=== PATIENT | female | born 1985 | race Hispanic/Latino ===

== ENCOUNTER 2019-02-08 22:31 | Emergency (ER) | payer SELFPAY ==
--- NOTE | 2019-02-08 23:37 | RAD ---
RIGHT LEG TWO VIEWS: 02/08/19 HISTORY: Ulcer on the right sanchez, right leg pain. FINDINGS/IMPRESSION: The right tibia and fibula are intact. No fracture, bony destruction or periosteal reaction is seen. Soft tissue calcification is present. POS: [facility]
[2019-02-08 23:44] LABS: #Basophils 0.1 thou/uL (0.0-0.2); #Eosinphils 0.3 thou/uL (0.0-0.7); #Lymphocytes 2.4 thou/uL (1.20-3.40); #Monocytes 0.5 thou/uL (0.11-0.59); #Neutrophils 4.4 thou/uL (1.40-6.50); %Basophils 0.7 % (0.0-1.0); %Eosinophils 3.8 % (0.0-10.0); %Lymphocytes 31.6 % (21.0-51.0); %Monocytes 6.4 % (0.0-10.0); %Neutrophils 57.6 % (42.0-75.0); Hemoglobin 11.9 g/dL (12.0-16.0); Mean Corpuscular Hemoglobin 26.7 pg (27.0-31.0); Mean Corpuscular Volume 83.3 fL (78.0-98.0); Mean Platelet Volume 6.8 fL (7.4-10.4); Platelet Count 237 thou/uL (130-400); RBC Distribution Width 13.2 % (11.5-14.5); Red Blood Cell (RBC) Count 4.48 mill/uL (4.20-5.40); White Blood Cell (WBC) Count 7.6 thou/uL (4.8-10.8)
[2019-02-08 23:56] LABS: ALT (SGPT) 17 U/L (8-55); AST (SGOT) 18 U/L (5-34); Albumin 4.4 g/dL (3.5-5.0); Alkaline Phosphatase 91 U/L (40-150); Anion Gap 14 mmol/L (10-20); BUN (Urea Nitrogen) 8 mg/dL (7.0-18.7); Bilirubin, Total 0.5 mg/dL (0.2-1.2); Calc. Creatinine Clearance 0 mL/min (70-130); Calcium 9.2 mg/dL (7.8-10.44); Carbon Dioxide 23 mmol/L (22-29); Chloride 106 mmol/L (98-107); Estimated GFR-MDRD Greater than 90; Globulin 3.4 g/dL (2.4-3.5); Glucose 101 mg/dL (70-105); Potassium 3.8 mmol/L (3.5-5.1); Protein, Total 7.8 g/dL (6.0-8.3); Sodium 139 mmol/L (136-145)
== END 2019-02-09 01:16 | disposition home or self-care (01) ==
LOC: SCSER 22:31
DX: L97.919 Non-pressure chronic ulcer of unspecified part of right lower leg with unspecified severity (principal); L29.9 Pruritus, unspecified
CPT/HCPCS: 36415; 80053; 83605; 85025; 87040; 87070; 87077; 87186; 87205

== ENCOUNTER 2019-02-12 16:53 | Emergency (ER) | payer SELFPAY ==
[2019-02-12] MEDS ORDERED: predniSONE 20 MG TAB ONE (18:43)
== END 2019-02-12 18:53 | disposition home or self-care (01) ==
LOC: SCSER 16:53
DX: B86 Scabies (principal); Z79.899 Other long term (current) drug therapy
CPT/HCPCS: 99282; J7512

== ENCOUNTER 2019-12-25 08:20 | Outpatient (CLI) | payer OTHER ==
--- NOTE | 2019-12-25 10:15 | MMO ---
Left Breast MAMMO Unilat Diag [facility] LT+[facility]. CLINICAL HISTORY: Patient is 34 years old and is seen for additional evaluation requested from prior study pain in the left breast. The patient has no family history of breast cancer. The patient has no personal history of cancer. VIEWS: The views performed were: left craniocaudal with tomosynthesis; left mediolateral oblique with tomosynthesis; and left mediolateral with tomosynthesis. FILMS COMPARED: The present examination has been compared to prior imaging studies performed at [facility] on 09/03/2019, 12/10/2019 and 12/25/2019. This study has been interpreted with the assistance of computer-aided detection. MAMMOGRAM FINDINGS: The breast is heterogeneously dense, which could obscure a lesion on mammography. Finding 1: There are stable benign appearing calcifications seen in the left breast. Finding 2: Ultrasound was performed in retroareolar region at site of patient's pain. Duct ectasia is seen with what appears to represent debris in the ducts without evidence of a definite mass seen in the dilated ducts. IMPRESSION: FINDING 1: STABLE CALCIFICATIONS IN THE LEFT BREAST ARE BENIGN. FINDING 2: FINDING IN THE LEFT BREAST IS PROBABLY BENIGN. FOLLOW-UP IN 6 MONTHS IS RECOMMENDED. SHORT 6 MONTH FOLLOW UP EXAM LEFT BREAST ULTRASOUND IS RECOMMENDED TO REEVALUATE DUCT ECTASIA AND FINDINGS MOST LIKELY RELATED TO DEBRIS. MAMMOGRAM DOES NOT NEED TO BE PERFORMED AT THIS TIME. THE RESULTS OF THIS EXAM WERE SENT TO THE PATIENT. ACR BI-RADS Category 3 - Probably benign finding - short interval follow-up suggested. [facility] will notify the patient of the need for additional imaging services. MAMMOGRAPHY NOTE: 1. A negative mammogram report should not delay a biopsy if a dominant of clinically suspicious mass is present. 2. Approximately 10% to 15% of breast cancers are not detected by mammography. 3. Adenosis and dense breasts may obscure an underlying neoplasm. Reported by: DARRELL ARANA MD Electonically Signed: [id number]
--- NOTE | 2019-12-25 10:50 | ULT ---
LIMITED ULTRASOUND LEFT BREAST: HISTORY: Left breast pain. No mammographic abnormality appreciated. COMPARISON: 12/10/2019 and 09/03/2019. FINDINGS: Limited sonographic evaluation of the left breast was obtained in the retroareolar region which is in the region of patient's area of pain. There are multiple serpiginous tubular anechoic structures mo st compatible with dilated ducts, some of which have increased echogenic material within the ducts, l ikely attributable to debris. No definitive mass is seen within the ducts on real-time imaging. Col or flow evaluation also did not demonstrate flow in regions of the echogenic material within the duct s again suggesting debris. A few anechoic cystic structures are also seen within the left breast, the largest measuring approximately 1.7 cm which demonstrate sonographic characteristics most compatible with cysts. Cysts were seen on the prior ultrasound examination in the retroareolar region as well. IMPRESSION: 1. Dilated ducts with echogenic material within the ducts most likely related to debris. No definit shawn mass is seen within the ducts on real-time imaging. 2. Left breast cyst. 3. BIRADS category 3, probably benign findings. Short 6-month followup unilateral left breast ultra sound is recommended to reevaluate the echogenic material within the dilated ducts which is again fel t to most likely be related to debris and no definitive mass is seen. 4. The patient's nipple discharge should be further managed clinically. The patient reports a milky discharge. POS: OFF
== END 2019-12-25 08:21 | disposition home or self-care (01) ==
LOC: BICMAMMO 08:20
PROVIDERS: ATTEND Nurse Practitioner Women's Health
DX: N64.4 Mastodynia (principal); R92.1 Mammographic calcification found on diagnostic imaging of breast; N60.02 Solitary cyst of left breast; N64.89 Other specified disorders of breast
CPT/HCPCS: G0279